=== PATIENT | female | born 1980 | race Caucasian/White ===

== ENCOUNTER 2016-02-22 08:43 | Emergency (ER) | payer OTHER ==
--- NOTE | 2016-02-22 11:32 | ED NURSING NOTES ---
Clinical Report - Nurses [facility] [address] [place] [address] 02/22/2016 8:44 Patient: DALILA HINDS TRIAGE Triage time 09:02. Acuity: LEVEL 3. Chief Complaint: RIGHT-SIDED FLANK PAIN. 09:09 02/22/16. Alert. No acute distress. SEPSIS SCREEN: Sepsis Screen. Infection suspected/documented. Heart rate not greater than 90. Respiratory rate not greater than 20. --09:10 Iam Mckoy R.N. 09:05 02/22/16. BP: 143/92. HR: 77. RR: 19. O2 saturation: 98% on room air. Temp: 98 F (oral). Pain level now 9/10. --09:10 Iam Mckoy R.N. Weight: 93.8 kg stated. Height/Length: 71 inches Per Patient. BMI: 28.9. --09:06 Iam Mckoy R.N. Medications Tecfidera Oral. --09:08 aIm Mckoy R.N. Vitamin D Oral. --09:08 Iam Mckoy R.N. Vitamin B12 Oral. --09:08 Iam Mckoy R.N. Allergies No Known Drug Allergy. --09:08 Iam Mckoy R.N. History Primary physician (asim). ( right side and right flank pain since last night. States pain is still present this morning. Describes pain as constant. States she also has some abdominal discomfort from tensing up from pain, pain is in upper abdomen only. Describes pain as similar to kidney infection a year ago.). This started last night. 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 PAST MEDICAL HX: Last normal menstrual period was 1 week ago. Denies current . SOCIAL HX: Heavy tobacco smoker (cigarette)- less than 1 pack per day. Occasional alcohol use. No drug use. FALL RISK ASSESSMENT: Fall risk assessment completed. No fall risk identified. NUTRITIONAL RISK ASSESSMENT: The nutritional risk assessment revealed no deficiencies. FUNCTIONAL ASSESSMENT: Functional assessment: no impairments noted. LEARNING NEEDS ASSESSMENT: The learning needs assessment revealed no barriers. SKIN INTEGRITY ASSESSMENT: Skin integrity risk assessment completed. No skin integrity risk identified. --09:10 Iam Mckoy R.N. PROBLEMS: Contact Dermatitis. Sprain. Pelvic Pain. Neurological Disease. Vaginitis. UTI - Urinary Tract Infection. Multiple Sclerosis. Eye Pain. --09:08 Iam Mckoy R.N. ADDITIONAL SURGERIES: no known surgeries. Interventions ID band on patient. To treatment room. --09:10 Iam Mckoy R.N. PHYSICAL ASSESSMENT 09:10 02/22/16. Ambulatory to room. GENERAL / NEURO / PSYCH: Alert. Oriented X 4. Appears in no acute distress. HEENT: Mucous membranes are pink. RESPIRATORY: Respirations not labored. CVS: Capillary refill less than 2 seconds. GI / : Abdomen soft. CVA tenderness. SKIN: Skin is warm and dry. --09:10 Iam Mckoy R.N. NURSING PROGRESS NOTES 09:10 02/22/16. The plan of care for this patient has been created. Patient gowned. Head of bed elevated. Call light placed in reach. Bed placed in lowest position. Brakes of bed on. Patient ready for evaluation- chart flagged. --09:10 Iam Mckoy R.N. 09:24 02/22/2016 Site #1 started via IV in the right forearm with an 20g angiocath, with aseptic technique and good blood return; two attempts. Saline lock flushed with 10 mL saline (purple top only). --09:29 Iam Mckoy R.N. 09:46 02/22/2016 Started bag #1 1000 mL IV Fluids IV NS (Saline); at 999 mL/hr over 1 hour(s) via site #1. Allergies verified and confirmed 5 rights. IV patency established. IV site checked: no pain, redness, or swelling. IV flushed thoroughly pre- and post-medication administration. Completed per protocol. --09:56 Iam Mckoy R.N. 09:52 02/22/2016 Zofran (Ondansetron HCl) IVP 4 mg given over 1 minute(s) via site #1. Allergies verified and confirmed 5 rights. IV patency established. IV site checked: no pain, redness, or swelling. IV flushed thoroughly pre- and post-medication administration. IVP given by RN. --09:57 Iam Mckoy R.N. 09:56 02/22/2016 Dilaudid (HYDROmorphone HCl PF) IVP 1 mg given over 2 minute(s) via site #1. Allergies verified, confirmed 5 rights and sedative warning given to the patient and patient's manager background. IV patency established. IV site checked: no pain, redness, or swelling. IV flushed thoroughly pre- and post-medication administration. IVP given by RN. --09:58 Iam Mckoy R.N. 10:50 02/22/2016 IV Fluids IV NS Discontinued: bag #1 infused. Total amount infused: 1000 mL. IV patency established. IV site checked: no pain, redness, or swelling. IV flushed thoroughly. --11:50 Iam Mckoy R.N. 11:04 02/22/2016 Keflex (Cephalexin) PO Capsules 500 mg given. Allergies verified and confirmed 5 rights. --11:14 Iam Mckoy R.N. 09:30 02/22/16. BP: 130/95. HR: 80. RR: 17. O2 saturation: 100%. Pain level now 8. --11:54 Iam Mckoy R.N. DISPOSITION / DISCHARGE 11:44 02/22/2016 Site #1 removed upon discharge. Catheter intact. Bandage applied. --11:49 Iam Mckoy R.N. 11:48 02/22/16. Departure time: 1149. Condition at departure: improved and stable. No learning barriers present. Discharge instructions provided and reviewed with the patient. Reviewed medication(s) side effects, precautions, dosing and course information. Prescription(s) given to the patient. Patient verbalized understanding. Written instructions provided in Korean. The patient was discharged by the physician. She was discharged home and accompanied by manager background. She left the Emergency Department ambulatory and via private vehicle. Electric Meter Repairer Helper driving. --11:49 Iam Mckoy R.N. 11:46 02/22/16. BP: 132/85. HR: 72. RR: 16. O2 saturation: 100% on room air. Temp: 98.2 F (oral). Pain level now 02/14. --11:49 Iam Mckoy R.N. Locked/Released at 02/25/2016 15:07 by Lady Matias R.N.
--- NOTE | 2016-02-22 11:32 | ED ORDER SUMMARY ---
..... Patient: DALILA HINDS OrderSheet [facility] VisitID: [id number] [address] [place] [address] 35y, F Registration Date/Time: 02/22/2016 ORDER SHEET Weight: 93.8 kg (stated) Allergies: No Known Drug Allergy GENERAL ORDERS: CBC w Diff Urgent (:02/22/2016 Scott Gonsalves) (9:55 KWilliams R.N.) (Ack 9:55 LNations ER Tech1) CMP Urgent (:02/22/2016 Scott Gonsalves) (9:55 KWilliams R.N.) (Ack 9:55 LNations ER Tech1) UA-Culture if indicated Urgent (02/22/2016 Scott Gonsalves) (9:55 KWilliams R.N.) (Ack 9:55 LNations ER Tech1) Lipase Urgent (:02/22/2016 Scott Gonsalves) (9:55 KWilliams R.N.) (Ack 9:55 LNations ER Tech1) Pulse oximeter (:02/22/2016 Scott Gonsalves) (9:45 KWilliams R.N.) Urine Urgent (:02/24/2016 Scott Gonsalves) (Cancelled: unable to do test anymore7:52 Scott Gonsalves) MEDICATION ORDERS: Keflex PO 500 mg (NOW) (10:42 02/22/2016 Scott Gonsalves) (11:14 KWilliams R.N.) IV FLUIDS: IV NS : initial bolus 1000 mL (1000 mL/hr), then none - for X1 (NOW) (:02/22/2016 Scott Gonsalves) (9:56 KWilliams R.N.) Zofran IV 4 mg (NOW) (02/22/2016 Scott Gonsalves) (9:57 KWilliams R.N.) Dilaudid IV 1 mg (HIGH ALERT MEDICATION, NOW) (02/22/2016 Scott Gonsalves) (9:58 KWilliams R.N.) ORDER SHEET NOTES: [Electronically signed by Odin Vaughn Dr. (08:02/24/2016)] [Electronically signed by Lady Matias R.N. (15:02/25/2016)] [Electronically locked/signed by Lady Matias R.N. (15:02/25/2016)]
--- NOTE | 2016-02-22 11:32 | ED CLINICAL REPORT ---
Clinical Report - Physicians/Mid Levels [facility] [address] [place] [address] 02/22/2016 8:44 Patient: DALILA HINDS Arrived- By private vehicle. Historian- patient. HISTORY OF PRESENT ILLNESS Chief Complaint: FLANK PAIN. At its maximum, severity described as moderate. When seen in the E.D., severity described as moderate. Is still present and worsening. It was gradual in onset and has been constant but is not gone now. No radiation. It is described as located in the right flank. No loss of appetite, vomiting or diarrhea. No additional abdominal pain. No recent travel. Similar symptoms previously: None. Recent medical care: Not recently seen/assessed. REVIEW OF SYSTEMS No constipation, black stools, hematemesis, bloody stools or fever. No chest pain or skin rash. All systems otherwise negative, except as recorded above. PAST HISTORY See nurses notes. Additional Surgeries: no known surgeries. Medications: Vitamin B12 Oral. Vitamin D Oral. Tecfidera Oral. Allergies: No Known Drug Allergy. SOCIAL HISTORY Smoker- current status unknown. Occasional alcohol use. No drug use. ADDITIONAL NOTES The nursing notes have been reviewed. PHYSICAL EXAM Vital Signs: 02/22/2016 09:05 BP: 143/92. HR: 77. RR: 19. O2 saturation: 98%. Temp: 98 F. Blood pressure normal. Oxygen saturation normal. Appearance: Alert. Oriented X3. No acute distress. CVS: Normal heart rate and rhythm. Heart sounds normal. Pulses normal. Respiratory: No respiratory distress. Breath sounds normal. Chest nontender. Abdomen: Soft and nontender. Bowel sounds normal. No mass. Back: Mild CVA tenderness on the right. Skin: Skin warm and dry. Normal skin color. No rash. Normal skin turgor. LABS, X-RAYS, AND EKG Laboratory Tests: UA-Culture if indicated: (UTE: 02/22/2016 09:50) ( MsgRcvd 02/22/2016 10:34) Final results Test Result Flag Units (Reference) URINE COLOR YELLOW URINE APPEARANCE CLEAR URINE GLUCOSE NEGATIVE (NEGATIVE) URINE BILIRUBIN NEGATIVE (NEGATIVE) URINE KETONE NEGATIVE (NEGATIVE) URINE SPECIFIC GRAVITY 1.010 (1.010-1.030) URINE PH 7.0 (5.0-8.0) URINE PROTEIN TRACE (NEGATIVE) URINE UROBILINOGEN 0.2 EU/dL (0.2-1.0) URINE NITRITE NEGATIVE (NEGATIVE) URINE BLOOD NEGATIVE (NEGATIVE) URINE LEUK ESTERASE POSITIVE (NEGATIVE) URINE RBC 0-1 rbc/hpf (0-1) URINE WBC 3-5 wbc/hpf (0-1) URINE EPITHELIAL CELLS 3-5 EPI/hpf (0-5) URINE BACTERIA FEW (1+) (NONE SEEN) URINE COMMENT CULTURE INDICATED URINE CULTURES ARE SET-UP BASED ON THE FOLLOWING CRITERIA:POSITIVE NITRITEPOSITIVE LEUKOCYTE ESTERASEGREATER THAN 10 WHITE BLOOD CELLSMODERATE (2+) OR GREATER BACTERIA CBC w Diff: (UTE: 02/22/2016 09:50) ( [facility] 02/22/2016 11:56) Final results Test Result Flag Units (Reference) WHITE BLOOD COUNT 4.9 K/uL (4.5-11.5) RED BLOOD COUNT 4.71 M/uL (4.00-5.20) HEMOGLOBIN 14.6 gm/dL (12.0-16.0) HEMATOCRIT 45.5 % (36.0-46.0) MEAN CELL VOLUME 97 fL (80-100) MEAN CORPUSCULAR HGB 31 pg (26-34) MEAN CORPUSCULAR HGB CONC 32 g/dL (31-37) RED CELL DISTRIBUTION WIDTH 13.1 % (11.6-14.8) PLATELET COUNT 203 K/uL (150-400) POLY % 73 % (50-75) BAND % 1 % (0-8) LYMPH 17 L % (25-40) MONO 8 % (3-14) EOSINOPHIL % 1 % (0-4) BASOPHIL % 0 % (0-2) METAMYELOCYTE % 0 % (0-1) MYELOCYTE 0 % (0-1) OTHER CELL TYPE 0 RBC MORPHOLOGY NORMAL CMP: (UTE: 02/22/2016 09:50) ( [facility] [place] 02/22/2016 10:20) Final results Test Result Flag Units (Reference) GLUCOSE 94 mg/dL (70-110) BUN 15 mg/dL (7-18) CREATININE 0.8 mg/dL (0.6-1.3) Estimated GFR >60 mL/min Estimated GFR- >60 mL/min Note: Persistent reduction over 3 months in eGFR<60 mL/min/1.73 m2 defines CKD. Patients with eGFR values>=60 mL/min/1.73 m2 may also have CKD if evidence ofpersistent proteinuria. Additional information may be foundat www.kidney.org. SODIUM 142 mmol/L (136-145) POTASSIUM 3.8 mmol/L (3.5-5.1) CHLORIDE 106 mmol/L (98-107) CARBON DIOXIDE 26 mmol/L (21-32) CALCIUM 9.1 mg/dL (8.5-10.1) TOTAL PROTEIN 7.2 g/dL (6.4-8.2) ALBUMIN 4.0 g/dL (3.3-5.0) BILIRUBIN, TOTAL 0.5 mg/dL (0.0-1.0) ALKALINE PHOSPHATASE 70 U/L (46-116) AST (SGOT) 16 U/L (15-37) ALT (SGPT) 28 U/L (12-78) LIPASE 117 U/L (73-393) Culture, Urine: (UTE: 02/22/2016 09:50) ( MsgRcvd 02/23/2016 10:05) IP Test Result Flag Units (Reference) CULTURE, URINE DATE: 02/23/16 PRELIM REPORT: PRELIMINARY REPORT #1 VERY EARLY GROWTH: VERY EARLY GROWTH: CULTURE TOO YOUNG FOR WORKUP-REINCUBATED . PROGRESS AND PROCEDURES Course of Care: the patient is a 35-year-old female comfortable past medical history of present for evaluation of right-sided flank pain. At this time differential diagnosis includes urinary tract infection versus appendicitis versus hepatitis. Laboratory studies as well as urinalysis have been ordered. Patient states that she is not . Had discussion patient in regards to test. Patient reports that she had taken one recently and was negative. Do not feel this needs to be repeated at this time. Patient is also adamant that she is . if there are any continued inconsistencies with the patient's workup in the emergency department, we'll revisit this later. Workup shows patient to have urinary tract infection. This is consistent with the patient's examination and history. Patient reports improved symptoms here in the emergency department. I discussed with patient in regards to her workup, diagnosis, home care, follow-up, and return precautions. All questions answered. The patient expressed understanding of these instructions and was agreeable to them. Particularly, acute appendicitis precautions provided. Discharged being completed after the patient has been dispositioned from the emergency department. the patient was contacted on [phone] at approximately 8 AM in the morning. Patient reports improved symptoms of her pain. Patient reports being on antibiotic for 48 hours. The patient states that she will return for any worsening or other concerns. Disposition: Discharged. Condition: good. CLINICAL IMPRESSION 02/22/2016 09:05 BP: 143/92. HR: 77. RR: 19. O2 saturation: 98%. Temp: 98 F. Blood pressure normal. Oxygen saturation normal. Acute pyelonephritis (right). Essential hypertension. INSTRUCTIONS Warnings: GENERAL WARNINGS: Return or contact your physician immediately if your condition worsens or changes unexpectedly, if not improving as expected, or if other problems arise. SPECIFICALLY, return if you develop pain, fever, vomiting, the inability to keep fluids down, blood in vomitus, blood in diarrhea, fainting or lightheadedness. Your Current Medications: CONTINUE TAKING THE FOLLOWING MEDICATIONS: Tecfidera Oral. Vitamin B12 Oral. Vitamin D Oral. Prescription Medications: Keflex 500 mg: take 1 capsule orally every 8 hours for 10 days. No refill. Substitution is permissible. (disp 30 caps) Motrin 600 mg tablets: take 1 tablet orally every 6 hours as needed for pain. Dispense thirty (30). No refill. Substitution is permissible. Hydrocodone/APAP 5mg / 325mg: take 1 orally every 6 hours as needed for pain. Dispense ten (10). No refill. Follow-up: Return to the emergency department as needed. Follow up with your doctor in three days. Reason for referral: recheck today's concerns. Summary of care provided to patient via paper. Screening today revealed the patient's blood pressure to be in the normal range. The patient should follow up with a primary care provider for blood pressure management. (Electronically signed by Odin Vaughn Dr. 02/24/2016 8:01)
--- NOTE | 2016-02-22 11:32 | ED ORDER SUMMARY ---
..... Patient: DALILA HINDS OrderSheet [facility] VisitID: [id number] [address] [place] [address] 35y, F Registration Date/Time: 02/22/2016 ORDER SHEET Weight: 93.8 kg (stated) Allergies: No Known Drug Allergy GENERAL ORDERS: CBC w Diff Urgent (:02/22/2016 Scott Gonsalves) (9:55 KWilliams R.N.) (Ack 9:55 LNations ER Tech1) CMP Urgent (:02/22/2016 Scott Gonsalves) (9:55 KWilliams R.N.) (Ack 9:55 LNations ER Tech1) UA-Culture if indicated Urgent (02/22/2016 Scott Gonsalves) (9:55 KWilliams R.N.) (Ack 9:55 LNations ER Tech1) Lipase Urgent (:02/22/2016 Scott Gonsalves) (9:55 KWilliams R.N.) (Ack 9:55 LNations ER Tech1) Pulse oximeter (:02/22/2016 Scott Gonsalves) (9:45 KWilliams R.N.) Urine Urgent (:02/24/2016 Scott Gonsalves) (Cancelled: unable to do test anymore7:52 Scott Gonsalves) MEDICATION ORDERS: Keflex PO 500 mg (NOW) (10:42 02/22/2016 Scott Gonsalves) (11:14 KWilliams R.N.) IV FLUIDS: IV NS : initial bolus 1000 mL (1000 mL/hr), then none - for X1 (NOW) (:02/22/2016 Scott Gonsalves) (9:56 KWilliams R.N.) Zofran IV 4 mg (NOW) (02/22/2016 Scott Gonsalves) (9:57 KWilliams R.N.) Dilaudid IV 1 mg (HIGH ALERT MEDICATION, NOW) (02/22/2016 Scott Gonsalves) (9:58 KWilliams R.N.) ORDER SHEET NOTES: [Electronically signed by Odin Vaughn Dr. (08:02/24/2016)] [Electronically signed by Lady Matias R.N. (15:02/25/2016)] [Electronically locked/signed by Lady Matias R.N. (15:02/25/2016)]
--- NOTE | 2016-02-22 11:32 | ED NURSING NOTES ---
Clinical Report - Nurses [facility] [address] [place] [address] 02/22/2016 8:44 Patient: DALILA HINDS TRIAGE Triage time 09:02. Acuity: LEVEL 3. Chief Complaint: RIGHT-SIDED FLANK PAIN. 09:09 02/22/16. Alert. No acute distress. SEPSIS SCREEN: Sepsis Screen. Infection suspected/documented. Heart rate not greater than 90. Respiratory rate not greater than 20. --09:10 Iam Mckoy R.N. 09:05 02/22/16. BP: 143/92. HR: 77. RR: 19. O2 saturation: 98% on room air. Temp: 98 F (oral). Pain level now 9/10. --09:10 Iam Mckoy R.N. Weight: 93.8 kg stated. Height/Length: 71 inches Per Patient. BMI: 28.9. --09:06 Iam Mckoy R.N. Medications Tecfidera Oral. --09:08 Iam Mckoy R.N. Vitamin D Oral. --09:08 Iam Mckoy R.N. Vitamin B12 Oral. --09:08 Iam Mckoy R.N. Allergies No Known Drug Allergy. --09:08 Iam Mckoy R.N. History Primary physician (asim). ( right side and right flank pain since last night. States pain is still present this morning. Describes pain as constant. States she also has some abdominal discomfort from tensing up from pain, pain is in upper abdomen only. Describes pain as similar to kidney infection a year ago.). This started last night. 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 PAST MEDICAL HX: Last normal menstrual period was 1 week ago. Denies current . SOCIAL HX: Heavy tobacco smoker (cigarette)- less than 1 pack per day. Occasional alcohol use. No drug use. FALL RISK ASSESSMENT: Fall risk assessment completed. No fall risk identified. NUTRITIONAL RISK ASSESSMENT: The nutritional risk assessment revealed no deficiencies. FUNCTIONAL ASSESSMENT: Functional assessment: no impairments noted. LEARNING NEEDS ASSESSMENT: The learning needs assessment revealed no barriers. SKIN INTEGRITY ASSESSMENT: Skin integrity risk assessment completed. No skin integrity risk identified. --09:10 Iam Mckoy R.N. PROBLEMS: Contact Dermatitis. Sprain. Pelvic Pain. Neurological Disease. Vaginitis. UTI - Urinary Tract Infection. Multiple Sclerosis. Eye Pain. --09:08 Iam Mckoy R.N. ADDITIONAL SURGERIES: no known surgeries. Interventions ID band on patient. To treatment room. --09:10 Iam Mckoy R.N. PHYSICAL ASSESSMENT 09:10 02/22/16. Ambulatory to room. GENERAL / NEURO / PSYCH: Alert. Oriented X 4. Appears in no acute distress. HEENT: Mucous membranes are pink. RESPIRATORY: Respirations not labored. CVS: Capillary refill less than 2 seconds. GI / : Abdomen soft. CVA tenderness. SKIN: Skin is warm and dry. --09:10 Iam Mckoy R.N. NURSING PROGRESS NOTES 09:10 02/22/16. The plan of care for this patient has been created. Patient gowned. Head of bed elevated. Call light placed in reach. Bed placed in lowest position. Brakes of bed on. Patient ready for evaluation- chart flagged. --09:10 Iam Mckoy R.N. 09:24 02/22/2016 Site #1 started via IV in the right forearm with an 20g angiocath, with aseptic technique and good blood return; two attempts. Saline lock flushed with 10 mL saline (purple top only). --09:29 Iam Mckoy R.N. 09:46 02/22/2016 Started bag #1 1000 mL IV Fluids IV NS (Saline); at 999 mL/hr over 1 hour(s) via site #1. Allergies verified and confirmed 5 rights. IV patency established. IV site checked: no pain, redness, or swelling. IV flushed thoroughly pre- and post-medication administration. Completed per protocol. --09:56 Iam Mckoy R.N. 09:52 02/22/2016 Zofran (Ondansetron HCl) IVP 4 mg given over 1 minute(s) via site #1. Allergies verified and confirmed 5 rights. IV patency established. IV site checked: no pain, redness, or swelling. IV flushed thoroughly pre- and post-medication administration. IVP given by RN. --09:57 Iam Mckoy R.N. 09:56 02/22/2016 Dilaudid (HYDROmorphone HCl PF) IVP 1 mg given over 2 minute(s) via site #1. Allergies verified, confirmed 5 rights and sedative warning given to the patient and patient's stitch wheeler. IV patency established. IV site checked: no pain, redness, or swelling. IV flushed thoroughly pre- and post-medication administration. IVP given by RN. --09:58 Iam Mckoy R.N. 10:50 02/22/2016 IV Fluids IV NS Discontinued: bag #1 infused. Total amount infused: 1000 mL. IV patency established. IV site checked: no pain, redness, or swelling. IV flushed thoroughly. --11:50 Iam Mckoy R.N. 11:04 02/22/2016 Keflex (Cephalexin) PO Capsules 500 mg given. Allergies verified and confirmed 5 rights. --11:14 Iam Mckoy R.N. 09:30 02/22/16. BP: 130/95. HR: 80. RR: 17. O2 saturation: 100%. Pain level now 8. --11:54 Iam Mckoy R.N. DISPOSITION / DISCHARGE 11:44 02/22/2016 Site #1 removed upon discharge. Catheter intact. Bandage applied. --11:49 Iam Mckoy R.N. 11:48 02/22/16. Departure time: 1149. Condition at departure: improved and stable. No learning barriers present. Discharge instructions provided and reviewed with the patient. Reviewed medication(s) side effects, precautions, dosing and course information. Prescription(s) given to the patient. Patient verbalized understanding. Written instructions provided in Czech. The patient was discharged by the physician. She was discharged home and accompanied by stitch wheeler. She left the Emergency Department ambulatory and via private vehicle. Color Adviser driving. --11:49 Iam Mckoy R.N. 11:46 02/22/16. BP: 132/85. HR: 72. RR: 16. O2 saturation: 100% on room air. Temp: 98.2 F (oral). Pain level now 02/14. --11:49 Iam Mckoy R.N. Locked/Released at 02/25/2016 15:07 by Lady Matias R.N.
--- NOTE | 2016-02-25 15:08 | ED MED RECONCILIATION SUMMARY ---
Patient: DALILA HINDS Medication Reconciliation Report [facility] VisitID: [id number] [address] [place] [address] 35y, F Registration Date/Time: 02/22/2016 Weight: 93.8 kg Height/Length: 71 in. BMI: 28.9 ALLERGIES: No Known Drug Allergy The patient's Home Medications are listed below: CONTINUE TAKING THE FOLLOWING MEDICATIONS: Tecfidera Oral Vitamin B12 Oral Vitamin D Oral The source(s) of the original Home Medication information: Not obtained. The following Medications were given to the patient in the Emergency Department: IV NS IV Fluids bolus 0, then 999 mL/hr, administered: 02/22/2016 9:46:00 AM Zofran [IVP] IVP 4 mg, administered: 02/22/2016 9:52:00 AM Dilaudid [IVP] IVP 1 mg, administered: 02/22/2016 9:56:00 AM Keflex [PO] PO 500 mg, administered: 02/22/2016 11:04:00 AM The following Medications were prescribed to the patient: Keflex 500 mg: take 1 capsule orally every 8 hours for 10 days. No refill. Substitution is permissible.(disp 30 caps) -- Odin Vaughn Dr. Motrin 600 mg tablets: take 1 tablet orally every 6 hours as needed for pain. Dispense thirty (30). No refill. Substitution is permissible. -- Odin Vaughn Dr. Hydrocodone/APAP 5mg / 325mg: take 1 orally every 6 hours as needed for pain. Dispense ten (10). No refill. -- Odin Vaughn Dr.
--- NOTE | 2016-02-25 15:08 | ED MED RECONCILIATION SUMMARY ---
Patient: DALILA HINDS Medication Reconciliation Report [facility] VisitID: [id number] [address] [place] [address] 35y, F Registration Date/Time: 02/22/2016 Weight: 93.8 kg Height/Length: 71 in. BMI: 28.9 ALLERGIES: No Known Drug Allergy The patient's Home Medications are listed below: CONTINUE TAKING THE FOLLOWING MEDICATIONS: Tecfidera Oral Vitamin B12 Oral Vitamin D Oral The source(s) of the original Home Medication information: Not obtained. The following Medications were given to the patient in the Emergency Department: IV NS IV Fluids bolus 0, then 999 mL/hr, administered: 02/22/2016 9:46:00 AM Zofran [IVP] IVP 4 mg, administered: 02/22/2016 9:52:00 AM Dilaudid [IVP] IVP 1 mg, administered: 02/22/2016 9:56:00 AM Keflex [PO] PO 500 mg, administered: 02/22/2016 11:04:00 AM The following Medications were prescribed to the patient: Keflex 500 mg: take 1 capsule orally every 8 hours for 10 days. No refill. Substitution is permissible.(disp 30 caps) -- Odin Vaughn Dr. Motrin 600 mg tablets: take 1 tablet orally every 6 hours as needed for pain. Dispense thirty (30). No refill. Substitution is permissible. -- Odin Vaughn Dr. Hydrocodone/APAP 5mg / 325mg: take 1 orally every 6 hours as needed for pain. Dispense ten (10). No refill. -- Odin Vaughn Dr.
--- NOTE | 2016-02-25 15:08 | ED MAR SUMMARY ---
..... Medication Administration Record [facility] [address] [place] [address] Patient: DALILA HINDS Visit ID: [id number] 35y, F Weight: 93.8 kg Height/Length: 71 in BMI: 28.9 ALLERGIES: No Known Drug Allergy Start 09:46 02/22/2016 Iam Mckoy R.N., Stop 10:50 02/22/2016 Iam Mckoy R.N. Medication Administered: IV NS (SALINE), Dose: IV Fluids over 1 hour(s), Rate: 999 mL/hr, Dispensed: 1000 mL bag, Site: #1 right forearm. Medication Ordered: IV NS : initial bolus 1000 mL (1000 mL/hr), then none - for X1 (NOW). Given 09:52 02/22/2016 Iam Mckoy R.N. Medication Administered: ZOFRAN [IVP] (ONDANSETRON HCL), Dose: 4 mg IVP over 1 minute(s), Site: #1 right forearm. Medication Ordered: Zofran IV 4 mg (NOW). Given 09:56 02/22/2016 Iam Mckoy R.N. Medication Administered: DILAUDID [IVP] (HYDROMORPHONE HCL PF), Dose: 1 mg IVP over 2 minute(s), Site: #1 right forearm. Medication Ordered: Dilaudid IV 1 mg (HIGH ALERT MEDICATION, NOW). Given 11:04 02/22/2016 Iam Mckoy R.N. Medication Administered: KEFLEX [PO] (CEPHALEXIN), Dose: 500 mg Capsules PO. Medication Ordered: Keflex PO 500 mg (NOW).
--- NOTE | 2016-02-25 15:08 | ED MAR SUMMARY ---
..... Medication Administration Record [facility] [address] [place] [address] Patient: DALILA HINDS Visit ID: [id number] 35y, F Weight: 93.8 kg Height/Length: 71 in BMI: 28.9 ALLERGIES: No Known Drug Allergy Start 09:46 02/22/2016 Iam Mckoy R.N., Stop 10:50 02/22/2016 Iam Mckoy R.N. Medication Administered: IV NS (SALINE), Dose: IV Fluids over 1 hour(s), Rate: 999 mL/hr, Dispensed: 1000 mL bag, Site: #1 right forearm. Medication Ordered: IV NS : initial bolus 1000 mL (1000 mL/hr), then none - for X1 (NOW). Given 09:52 02/22/2016 Iam Mckoy R.N. Medication Administered: ZOFRAN [IVP] (ONDANSETRON HCL), Dose: 4 mg IVP over 1 minute(s), Site: #1 right forearm. Medication Ordered: Zofran IV 4 mg (NOW). Given 09:56 02/22/2016 Iam Mckoy R.N. Medication Administered: DILAUDID [IVP] (HYDROMORPHONE HCL PF), Dose: 1 mg IVP over 2 minute(s), Site: #1 right forearm. Medication Ordered: Dilaudid IV 1 mg (HIGH ALERT MEDICATION, NOW). Given 11:04 02/22/2016 Iam Mckoy R.N. Medication Administered: KEFLEX [PO] (CEPHALEXIN), Dose: 500 mg Capsules PO. Medication Ordered: Keflex PO 500 mg (NOW).
--- NOTE | 2016-02-25 15:08 | ED DISCHARGE INSTRUCTIONS ---
Patient: DALILA HINDS General Instructions [facility] VisitID: [id number] [address] [place] [address] 35y, F Registration Date/Time: 02/22/2016 02/22/2016 09:05 BP: 143/92. HR: 77. RR: 19. O2 saturation: 98%. Temp: 98 F. Blood pressure normal. Oxygen saturation normal. Acute pyelonephritis (right). Essential hypertension. INSTRUCTIONS Warnings: GENERAL WARNINGS: Return or contact your physician immediately if your condition worsens or changes unexpectedly, if not improving as expected, or if other problems arise. SPECIFICALLY, return if you develop pain, fever, vomiting, the inability to keep fluids down, blood in vomitus, blood in diarrhea, fainting or lightheadedness. Your Current Medications: CONTINUE TAKING THE FOLLOWING MEDICATIONS: Tecfidera Oral. Vitamin B12 Oral. Vitamin D Oral. Prescription Medications: Keflex 500 mg: take 1 capsule orally every 8 hours for 10 days. No refill. Substitution is permissible. (disp 30 caps) Motrin 600 mg tablets: take 1 tablet orally every 6 hours as needed for pain. Dispense thirty (30). No refill. Substitution is permissible. Hydrocodone/APAP 5mg / 325mg: take 1 orally every 6 hours as needed for pain. Dispense ten (10). No refill. Follow-up: Return to the emergency department as needed. Follow up with your doctor in three days. Reason for referral: recheck today's concerns. Summary of care provided to patient via paper. Screening today revealed the patient's blood pressure to be in the normal range. The patient should follow up with a primary care provider for blood pressure management. ADDITIONAL INFORMATION Kidney Infection [Adult, Female] An infection of the kidney is also called "pyelonephritis". It usually starts as a bladder infection ("cystitis") which spreads to the kidneys. Pyelonephritis is more serious than a bladder infection. It can cause severe illness if not treated properly. The usual symptoms include an aching pain in the back, side or lower abdomen. Other symptoms may include fever, chills, nausea, vomiting, an urge to urinate and a burning sensation when passing urine. Home Care: Stay home from work or school. Rest in bed until your fever breaks and you are feeling better. Drink lots of fluid (at least 6-8 glasses a day, unless you must restrict fluids for other medical reasons). This will force the medicine into your urinary system and flush the bacteria out of your body. Avoid sexual intercourse until you have finished all of your medicine and your symptoms have gone away. Avoid caffeine, alcohol and spicy foods which may irritate the kidney and bladder. You may use acetaminophen (Tylenol) or ibuprofen (Motrin, Advil) to control pain, unless another pain medicine was prescribed. [NOTE: If you have chronic liver or kidney disease or ever had a stomach ulcer or GI bleeding, talk with your doctor before using these medicines.] Follow Up with your doctor or as advised by our staff for a repeat urine test in 10 days. This will ensure that your infection is fully cleared. [NOTE: If you had an X-ray or CT scan, it will be reviewed by a specialist. You will be notified of any new findings that may affect your care.] Get Prompt Medical Attention if any of the following occur: Fever over 100.4F (38.0C) after 48 hours of treatment No improvement by the third day of treatment Increasing back or abdominal pain Repeated vomiting or inability to take oral medicine Weakness, dizziness or fainting High Blood Pressure -- To Be Confirmed [No Tx] Your blood pressure was higher today than normal. Sometimes anxiety or pain can cause a temporary rise in blood pressure that later returns to normal. If your blood pressure is high on one measurement, this does not mean that you have hypertension (a chronic illness). However, you must have your blood pressure measured again within the next few days to find out if its still high. A normal blood pressure is 120/80 or less. The first (top) number is the "systolic" pressure. The second (bottom) number is the "diastolic" pressure. Hypertension exists when either the top number is 140 or higher, OR the bottom number is 90 or higher on repeated measurements. Blood pressure in the range of 120-140 (systolic) or 80-89 (diastolic) is considered "pre-hypertension". This means your are at risk for getting hypertension. You should have regular blood pressure checks to be sure your blood pressure is not rising. Home Care: Measure your blood pressure on 3 different days and write down the results. This can be done at your doctor's office or this facility. Some pharmacies and grocery stores offer automated blood pressure machines for your use. Follow Up: If your blood pressure is "high" (over 120/80) on 2 out of 3 days, you will need to follow up with your doctor for further evaluation and treatment. DO NOT PUT THIS OFF! Untreated high blood pressure increases the risk for heart attack, also known as acute myocardial infarction, or AMI, and stroke. It is a treatable condition. Get Prompt Medical Attention if any of the following occur: Chest pain or shortness of breath Severe headache Throbbing or rushing sound in the ears Nosebleed Sudden severe abdominal pain Extreme drowsiness, confusion or fainting Dizziness or vertigo (dizziness with spinning sensation) Weakness of an arm or leg or one side of the face Difficulty with speech or vision Cephalexin Monohydrate Oral tablet What is this medicine? CEPHALEXIN (sef a MATT in) is a cephalosporin antibiotic. It is used to treat certain kinds of bacterial infections It will not work for colds, flu, or other viral infections. How should I use this medicine? Take this medicine by mouth with a full glass of water. Follow the directions on the prescription label. This medicine can be taken with or without food. Take your medicine at regular intervals. Do not take your medicine more often than directed. Take all of your medicine as directed even if you think you are better. Do not skip doses or stop your medicine early. Talk to your composition floor layer regarding the use of this medicine in children. While this drug may be prescribed for selected conditions, precautions do apply. What side effects may I notice from receiving this medicine? Side effects that you should report to your doctor or health transitional care nurse as soon as possible: allergic reactions like skin rash, itching or hives, swelling of the face, lips, or tongue breathing problems pain or trouble passing urine redness, blistering, peeling or loosening of the skin, including inside the mouth severe or watery diarrhea unusually weak or tired yellowing of the eyes, skin Side effects that usually do not require medical attention (report to your doctor or health transitional care nurse if they continue or are bothersome): gas or heartburn genital or anal irritation headache joint or muscle pain nausea, vomiting What may interact with this medicine? probenecid some other antibiotics What if I miss a dose? If you miss a dose, take it as soon as you can. If it is almost time for your next dose, take only that dose. Do not take double or extra doses. There should be at least 4 to 6 hours between doses. Where should I keep my medicine? Keep out of the reach of children. Store at room temperature between 59 and 86 degrees F (15 and 30 degrees C). Throw away any unused medicine after the expiration date. What should I tell my health care provider before I take this medicine? They need to know if you have any of these conditions: kidney disease stomach or intestine problems, especially colitis an unusual or allergic reaction to cephalexin, other cephalosporins, penicillins, other antibiotics, medicines, foods, dyes or preservatives or trying to get breast-feeding What should I watch for while using this medicine? Tell your doctor or health transitional care nurse if your symptoms do not begin to improve in a few days. Do not treat diarrhea with over the counter products. Contact your doctor if you have diarrhea that lasts more than 2 days or if it is severe and watery. If you have diabetes, you may get a false-positive result for sugar in your urine. Check with your doctor or health transitional care nurse. Ibuprofen Oral tablet What is this medicine? IBUPROFEN (eye BYOO proe fen) is a non-steroidal anti-inflammatory drug (NSAID). It is used for dental pain, fever, headaches or migraines, osteoarthritis, rheumatoid arthritis, or painful monthly periods. It can also relieve minor aches and pains caused by a cold, flu, or sore throat. How should I use this medicine? Take this medicine by mouth with a glass of water. Follow the directions on the prescription label. Take this medicine with food if your stomach gets upset. Try to not lie down for at least 10 minutes after you take the medicine. Take your medicine at regular intervals. Do not take your medicine more often than directed. A special MedGuide will be given to you by the pharmacist with each prescription and refill. Be sure to read this information carefully each time. Talk to your composition floor layer regarding the use of this medicine in children. Special care may be needed. What side effects may I notice from receiving this medicine? Side effects that you should report to your doctor or health transitional care nurse as soon as possible: allergic reactions like skin rash, itching or hives, swelling of the face, lips, or tongue black or bloody stools, blood in the urine or in vomit breathing problems changes in vision chest pain general ill feeling or flu-like symptoms nausea or vomiting redness, blistering, peeling or loosening of the skin, including inside the mouth slurred speech or weakness on one side of the body stomach pain unexplained weight gain or swelling unusually weak or tired yellowing of eyes or skin Side effects that usually do not require medical attention (report to your doctor or health transitional care nurse if they continue or are bothersome): constipation or diarrhea dizziness gas or heartburn stomach upset What may interact with this medicine? Do not take this medicine with any of the following medications: cidofovir ketorolac methotrexate pemetrexed This medicine may also interact with the following medications: alcohol aspirin diuretics lithium other drugs for inflammation like prednisone warfarin What if I miss a dose? If you miss a dose, take it as soon as you can. If it is almost time for your next dose, take only that dose. Do not take double or extra doses. Where should I keep my medicine? Keep out of the reach of children. Store at room temperature between 15 and 30 degrees C (59 and 86 degrees F). Keep container tightly closed. Throw away any unused medicine after the expiration date. What should I tell my health care provider before I take this medicine? They need to know if you have any of these conditions: asthma cigarette smoker drink more than 3 alcohol containing drinks a day heart disease or circulation problems such as heart failure or leg edema (fluid retention) high blood pressure kidney disease liver disease stomach bleeding or ulcers an unusual or allergic reaction to ibuprofen, aspirin, other NSAIDS, other medicines, foods, dyes, or preservatives or trying to get breast-feeding What should I watch for while using this medicine? Tell your doctor or healthcare professional if your symptoms do not start to get better or if they get worse. This medicine does not prevent heart attack or stroke. In fact, this medicine may increase the chance of a heart attack or stroke. The chance may increase with longer use of this medicine and in people who have heart disease. If you take aspirin to prevent heart attack or stroke, talk with your doctor or health transitional care nurse. Do not take other medicines that contain aspirin, ibuprofen, or naproxen with this medicine. Side effects such as stomach upset, nausea, or ulcers may be more likely to occur. Many medicines available without a prescription should not be taken with this medicine. This medicine can cause ulcers and bleeding in the stomach and intestines at any time during treatment. Ulcers and bleeding can happen without warning symptoms and can cause . To reduce your risk, do not smoke cigarettes or drink alcohol while you are taking this medicine. You may get drowsy or dizzy. Do not drive, use machinery, or do anything that needs mental alertness until you know how this medicine affects you. Do not stand or sit up quickly, especially if you are an older patient. This reduces the risk of dizzy or fainting spells. This medicine can cause you to bleed more easily. Try to avoid damage to your teeth and gums when you brush or floss your teeth. Hydrocodone Bitartrate, Acetaminophen Oral tablet What is this medicine? ACETAMINOPHEN; HYDROCODONE (a set a DAVID stacey fen; aquiles droe KOE done) is a pain reliever. It is used to treat mild to moderate pain. How should I use this medicine? Take this medicine by mouth. Swallow it with a full glass of water. Follow the directions on the prescription label. If the medicine upsets your stomach, take the medicine with food or milk. Do not take more than you are told to take. Talk to your composition floor layer regarding the use of this medicine in children. This medicine is not approved for use in children. What side effects may I notice from receiving this medicine? Side effects that you should report to your doctor or health transitional care nurse as soon as possible: allergic reactions like skin rash, itching or hives, swelling of the face, lips, or tongue breathing problems confusion feeling faint or lightheaded, falls stomach pain yellowing of the eyes or skin Side effects that usually do not require medical attention (report to your doctor or health transitional care nurse if they continue or are bothersome): nausea, vomiting stomach upset What may interact with this medicine? alcohol antihistamines isoniazid medicines for depression, anxiety, or psychotic disturbances medicines for sleep muscle relaxants naltrexone narcotic medicines (opiates) for pain phenobarbital ritonavir tramadol What if I miss a dose? If you miss a dose, take it as soon as you can. If it is almost time for your next dose, take only that dose. Do not take double or extra doses. Where should I keep my medicine? Keep out of the reach of children. This medicine can be abused. Keep your medicine in a safe place to protect it from theft. Do not share this medicine with anyone. Selling or giving away this medicine is dangerous and against the law. Store at room temperature between 15 and 30 degrees C (59 and 86 degrees F). Protect from light. Keep container tightly closed. Throw away any unused medicine after the expiration date. Discard unused medicine and used packaging carefully. Pets and children can be harmed if they find used or lost packages. What should I tell my health care provider before I take this medicine? They need to know if you have any of these conditions: brain tumor Crohn's disease, inflammatory bowel disease, or ulcerative colitis drink more than 3 alcohol-containing drinks per day drug abuse or addiction head injury heart or circulation problems kidney disease or problems going to the bathroom liver disease lung disease, asthma, or breathing problems an unusual or allergic reaction to acetaminophen, hydrocodone, other opioid analgesics, other medicines, foods, dyes, or preservatives or trying to get breast-feeding What should I watch for while using this medicine? Tell your doctor or health transitional care nurse if your pain does not go away, if it gets worse, or if you have new or a different type of pain. You may develop tolerance to the medicine. Tolerance means that you will need a higher dose of the medicine for pain relief. Tolerance is normal and is expected if you take the medicine for a long time. Do not suddenly stop taking your medicine because you may develop a severe reaction. Your body becomes used to the medicine. This does NOT mean you are addicted. Addiction is a behavior related to getting and using a drug for a non-medical reason. If you have pain, you have a medical reason to take pain medicine. Your doctor will tell you how much medicine to take. If your doctor wants you to stop the medicine, the dose will be slowly lowered over time to avoid any side effects. You may get drowsy or dizzy when you first start taking the medicine or change doses. Do not drive, use machinery, or do anything that may be dangerous until you know how the medicine affects you. Stand or sit up slowly. There are different types of narcotic medicines (opiates) for pain. If you take more than one type at the same time, you may have more side effects. Give your health care provider a list of all medicines you use. Your doctor will tell you how much medicine to take. Do not take more medicine than directed. Call emergency for help if you have problems breathing. The medicine will cause constipation. Try to have a bowel movement at least every 2 to 3 days. If you do not have a bowel movement for 3 days, call your doctor or health transitional care nurse. Too much acetaminophen can be very dangerous. Do not take Tylenol (acetaminophen) or medicines that contain acetaminophen with this medicine. Many non-prescription medicines contain acetaminophen. Always read the labels carefully. You have been given the following additional information: Pyelonephritis, Female (Adult) Hypertension, To Be Confirmed Cephalexin Monohydrate Oral tablet Ibuprofen Oral tablet Hydrocodone Bitartrate, Acetaminophen Oral tablet (Electronically signed by Odin Vaughn Dr. 02/24/2016 8:01)
== END 2016-02-22 11:54 | disposition home or self-care (01) ==
LOC: ED SRH 08:43
DX: N10 Acute pyelonephritis (principal); I10 Essential (primary) hypertension; F17.200 Nicotine dependence, unspecified, uncomplicated
CPT/HCPCS: 90004; 90100; 90469; 91643; 92235; 95059

== ENCOUNTER 2016-08-20 18:08 | Emergency (ER) | payer OTHER ==
--- NOTE | 2016-08-20 23:32 | DIAGNOSTIC IMAGING REPORT ---
PROCEDURE: US ABDOMEN ULTRASOUND-COMPLETE INDICATION: Second trimester . TECHNIQUE: Jerome scale and color Doppler sonographic images of the abdomen were obtained. COMPARISON: None. FINDINGS: Gallbladder is contracted, but within normal limits. No evidence of gallstones. Common duct (3 mm) is normal. normal. Mild splenomegaly (16.0 cm). Liver, pancreas, kidneys (right 10.6 cm, left 12.2 cm), aorta, and inferior vena cava are normal. Second trimester in position. IMPRESSION: 1. Negative abdominal ultrasound.
--- NOTE | 2016-08-21 00:59 | ED NURSING NOTES ---
Clinical Report - Nurses [facility] [address] [place] [address] 08/20/2016 18:09 Patient: DALILA HINDS TRIAGE Triage time 18:25. Acuity: LEVEL 3. Chief Complaint: ABDOMINAL PAIN and NAUSEA and URINARY FREQUENCY and FLANK PAIN (Lt sided and mid abd pain /. Started 21 days ago.). Alert. No acute distress. SEPSIS SCREEN: Sepsis Screen: negative. Negative (no infection suspected/documented). ALO COMA SCORE: Alo Coma Scale: 15- eyes open spontaneously (4); best verbal response- oriented x 4 (5); best motor response- obeys commands (6). --18:33 Avril Callejas R.N. 18:25 08/20/16. BP: 149/80. HR: 98. RR: 18. O2 saturation: 98% on room air. Temp: 98.4 F. Pain level now: 05/15. --18:33 Avril Callejas R.N. 18:25 08/20/16. BP: 149/80. HR: 98. RR: 18. O2 saturation: 98% on room air. Temp: 98.4 F. Pain level now: 05/15. --18:33 Avril Callejas R.N. Weight: 108.8 kg stated. Height/Length: 71 inches Per Patient. BMI: 33.5. --18:31 Avril Callejas R.N. Medications Vit d 5000units day . --18:28 Avril Callejas R.N. Asa 81mg day. --18:28 Avril Callejas R.N. Prenatals day. --18:28 Avril Callejas R.N. Medication/allergy information source: the patient. --18:33 Avril Callejas R.N. Allergies No Known Drug Allergy. --18:28 Avril Callejas R.N. History Arrived by private vehicle. Historian: patient. Primary physician (asim). Onset. (2 days ago). She has had nausea and moderate, sharp, dull, aching, intermittent abdominal pain. The pain is described as located in the LUQ, central area of the abdomen and left side of the abdomen and radiating to the back and associated with nausea. No vomiting, diarrhea or constipation. Treatment GRADES 9 THROUGH 12 TEACHER: None. PAST MEDICAL HX: Immunizations: status is unknown. Confirmed . In 2nd trimester. Has had care by string studies director. G 4. P 2. Ab 1. SURGERY HX: No history of previous surgery. SOCIAL HX: Never smoker. No alcohol use or drug use. No recent travel. ABUSE ASSESSMENT: No report of abuse. FALL RISK ASSESSMENT: Fall risk assessment completed. No fall risk identified. NUTRITIONAL RISK ASSESSMENT: The nutritional risk assessment revealed no deficiencies. FUNCTIONAL ASSESSMENT: Functional assessment: no impairments noted. LEARNING NEEDS ASSESSMENT: The learning needs assessment revealed no barriers. SKIN INTEGRITY ASSESSMENT: Skin integrity risk assessment completed. No skin integrity risk identified. --18:33 Avril Callejas R.N. ( [facility] 159). --18:33 Avril Callejas R.N. PROBLEMS: Hypertension. Pyelonephritis. Contact Dermatitis. Sprain. Pelvic Pain. Neurological Disease. Vaginitis. UTI - Urinary Tract Infection. Multiple Sclerosis. Tetanus Status. Eye Pain. Optic Neuritis. --18:29 Avril Callejas R.N. ADDITIONAL SURGERIES: no known surgeries. Interventions ID band on patient. She was not taken to a room. --18:33 Avril Callejas R.N. PHYSICAL ASSESSMENT Ambulatory to room. Patient gowned. GENERAL / NEURO / PSYCH: Alert. Oriented X 4. Appears in pain and anxious. HEENT: Mucous membranes are pink. RESPIRATORY: Respirations not labored. CVS: Capillary refill less than 2 seconds. GI / : Abdominal tenderness in the upper abdomen, epigastric area, left upper quadrant and left side of the abdomen. SKIN: Skin is warm and dry. --18:34 Avril Callejas R.N. NURSING PROGRESS NOTES Patient gowned. Head of bed elevated. Two patient identifiers checked. Call light placed in reach. Side rails up x 2. Bed placed in lowest position. Brakes of bed on. Patient ready for evaluation. --18:34 Avril Callejas R.N. 20:00. Patient ID band checked for patient name: patient confirmed. Instructions provided to collect clean catch urine and patient verbalized understanding. Clean catch urine collected with return of yellow-colored clear urine; sample sent to lab for urinalysis and culture. Specimen labeled in the presence of the patient. --20:24 Avril Callejas R.N. 20:25 08/20/2016 Site #1 started via IV in the right wrist with an 20g angiocath, with aseptic technique and good blood return; one attempt. Blood drawn: rainbow set. Labeled in the presence of the patient and sent to the lab. Saline lock flushed with 10 mL saline. --20:25 Avril Callejas R.N. 20:26 08/20/2016 Started bag #1 1000 mL IV Fluids IV NS (Saline); at 1000 mL/hr over 1 hour(s) via site #1 via IV pump. Allergies verified and confirmed 5 rights. IV patency established. IV site checked: no pain, redness, or swelling. IV flushed thoroughly pre- and post-medication administration. --20:26 Avril Callejas R.N. 20:33 08/20/16. BP: 120/78. HR: 80. RR: 18. O2 saturation: 99%. Pain level now: 03/17. --20:33 Avril Callejas R.N. 21:48 08/20/2016 IV Fluids IV NS Discontinued: bag #1 completed. Total amount infused: 1000 mL. IV patency established. IV site checked: no pain, redness, or swelling. IV flushed thoroughly. --21:48 Ora Stock 21:52 08/20/2016 Acetaminophen (APAP) PO 1000 mg given. Allergies verified and confirmed 5 rights. --21:53 Avril Callejas R.N. 22:43 Ultrasound at bedside for exam. --22:44 McQuoid, Carolina, ER Tech1 Care transferred and report received (Avril RN). --22:57 Christina Sharma R.N. 23:21 08/20/16. ( Patient given extra pillow to place behind back for comfort, she states she is hungry but informed her to wait a little longer to be given ok to eat by physician, she states her understanding to this). --23:21 Christina Sharma R.N. 00:28 08/21/16. ( Patient up to the restroom). --00:28 Christina Sharma R.N. 00:38 08/21/16. ( Patient back from restroom, she is doing ok but anxious to find out what is going on. Assured patient she will be notified as soon as physician is able). --00:38 Christina Sharma R.N. DISPOSITION / DISCHARGE 01:08/21/2016 Site #1 removed upon discharge. Bandaid applied. --01:12 Christina Sharma R.N. 01:12 08/21/16. Departure time: :Aug 21 2016. Condition at departure: unchanged. No learning barriers present. Discharge instructions provided and reviewed with the patient. Reviewed medication(s) side effects, precautions, dosing and course information. Prescription(s) given to the patient. Activity restrictions (rest) reviewed. Patient verbalized understanding. Written instructions provided in Turkmen. The patient was discharged by the physician. She was discharged home and accompanied by chipper. She left the Emergency Department ambulatory and via private vehicle. Processing Supervisor driving. --01:12 Christina Sharma R.N. 01:09 08/21/16. BP: 124/65 (regular adult cuff) taken on the left arm, while sitting. HR: 71. RR: 18. O2 saturation: 95% on room air. Temp: 98 F (oral). Pain level now: 10. --01:12 Christina Sharma R.N. Locked/Released at 08/21/2016 1:46 by Christina Sharma R.N.
--- NOTE | 2016-08-21 00:59 | ED ORDER SUMMARY ---
..... Patient: DALILA HINDS OrderSheet [facility] VisitID: [id number] [place] [address] 35y, F Registration Date/Time: 08/20/2016 ORDER SHEET Weight: 108.8 kg (stated) Allergies: No Known Drug Allergy GENERAL ORDERS: UA-Culture if indicated Urgent (20:08/20/2016 Pauline R.N. verbal order read back to Ziggy Gonsalves) (Ack 20:31 OSrosalinda) (21:53 Pauline R.N.) CBC w Diff Urgent (20:08/20/2016 Pauline R.N. verbal order read back to Ziggy Gonsalves) (Ack 20:31 OSrosalinda) (21:22 AMcQuoid ER Tech1) CMP Urgent (20:26 08/20/2016 Pauline R.N. verbal order read back to Ziggy Gonsalves) (Ack 20:31 OSrosalinda) (21:22 AMcQuoid ER Tech1) US Abdomen Limited (Yes) (Left side) Urgent (21:31 08/20/2016 Ziggy Gonsalves) (Ack 21:33 AMcQuoid ER Tech1) (22:57 Diego Tripathi.N.) US Abdomen Complete (No) Urgent (23:11 08/20/2016 AMcQuoid ER Tech1 verbal order read back to Ziggy Gonsalves) (23:12 AMcQuoid ER Tech1) MEDICATION ORDERS: Acetaminophen PO 1,000 mg (NOW) (21:35 08/20/2016 Ziggy Gonsalves) (Ack 21:49 Pauline R.N.) IV FLUIDS: IV NS with Normal Saline 1 Liter: initial bolus none -, then 1000 mL/hr for X1 (NOW) (20:25 08/20/2016 Pauline Olvera. verbal order read back to Ziggy Gonsalves) (20:26 Pauline R.N.) IV Saline Lock (20:26 08/20/2016 Pauline Martinez verbal order read back to Ziggy Gonsalves) (20:26 Pauline R.N.) ORDER SHEET NOTES: [Electronically signed by Christina Sharma R.N. (01:46 08/21/2016)] [Electronically signed by Asad Sam MD (22:46 08/23/2016)] [Electronically locked/signed by Christina Sharma R.N. (:46 08/21/2016)]
--- NOTE | 2016-08-21 00:59 | ED CLINICAL REPORT ---
Clinical Report - Physicians/Mid Levels [facility] [address] [place] [address] 08/20/2016 18:09 Patient: DALILA HINDS Time Seen: 18:17; initial patient contact. Arrived- By private vehicle. Historian- patient. HISTORY OF PRESENT ILLNESS Chief Complaint: ABDOMINAL PAIN and FLANK PAIN. At its maximum, severity described as moderate. When seen in the E.D., severity described as moderate. Modifying factors. Not worsened by anything. Not relieved by anything. It is described as sharp, stabbing and cramping and it is described as located in the left abdomen and the left flank. This started about 2 days ago and is still present (persistent). It was gradual in onset and has been waxing/waning. The patient has had nausea. No loss of appetite, vomiting or diarrhea. Similar symptoms previously: None. Recent medical care: Not recently seen/assessed. REVIEW OF SYSTEMS No constipation, difficulty with urination, pain with urination, urinary frequency or fever. No chills. Currently . All systems otherwise negative, except as recorded above. PAST HISTORY Hypertension. Pyelonephritis. Contact Dermatitis. Sprain. Pelvic Pain. Neurological Disease. Vaginitis. UTI - Urinary Tract Infection. Multiple Sclerosis. Tetanus Status. Eye Pain. Optic Neuritis. Additional Surgeries: no known surgeries. Medications: Prenatals day. Asa 81mg day. Vit d 5000units day . Allergies: No Known Drug Allergy. SOCIAL HISTORY Never smoker. No alcohol use or drug use. ADDITIONAL NOTES The nursing notes have been reviewed. PHYSICAL EXAM Vital Signs: 08/20/2016 18:25 BP: 149/80. HR: 98. RR: 18. O2 saturation: 98%. Temp: 98.4 F. Pain level now: 10. Have been reviewed. Hypertensive. Heart rate normal. Respiratory rate normal. Temperature normal. Oxygen saturation normal. Appearance: Alert. Oriented X3. No acute distress. Eyes: Eyes normal inspection. ENT: Pharynx normal. CVS: Normal heart rate and rhythm. Heart sounds normal. Respiratory: No respiratory distress. Breath sounds normal. Abdomen: Soft. Moderate tenderness in the left side of the abdomen and left lower quadrant with guarding present. No rebound tenderness. Bowel sounds normal. No organomegaly. No mass. Back: Normal inspection. Moderate CVA tenderness on the left. Skin: Normal skin color. Extremities: No lower extremity edema. Neuro: Oriented X 3. LABS, X-RAYS, AND EKG Abdominal Sonogram: Mild enlargement of spleen is present. The study was independently viewed by me. Laboratory Tests: UA-Culture if indicated: (UTE: 08/20/2016 20:30) ( [facility] 08/20/2016 21:02) Final results Test Result Flag Units (Reference) URINE COLOR YELLOW URINE APPEARANCE SL CLOUDY URINE GLUCOSE TRACE (NEGATIVE) URINE BILIRUBIN NEGATIVE (NEGATIVE) URINE KETONE NEGATIVE (NEGATIVE) URINE SPECIFIC GRAVITY >= 1.030 (1.010-1.030) URINE PH 5.5 (5.0-8.0) URINE PROTEIN NEGATIVE (NEGATIVE) URINE UROBILINOGEN 0.2 EU/dL (0.2-1.0) URINE NITRITE NEGATIVE (NEGATIVE) URINE BLOOD NEGATIVE (NEGATIVE) URINE LEUK ESTERASE NEGATIVE (NEGATIVE) URINE RBC NONE SEEN rbc/hpf (0-1) URINE WBC 3-5 wbc/hpf (0-1) URINE EPITHELIAL CELLS 3-5 EPI/hpf (0-5) URINE BACTERIA NONE SEEN (NONE SEEN) URINE COMMENT CULT NOT INDICATED 2+ MUCUSMODERATE CALCIUM OXALATE CRYSTALSURINE CULTURES ARE SET-UP BASED ON THE FOLLOWING CRITERIA:POSITIVE NITRITEPOSITIVE LEUKOCYTE ESTERASEGREATER THAN 10 WHITE BLOOD CELLSMODERATE (2+) OR GREATER BACTERIA CBC w Diff: (UTE: 08/20/2016 20:30) ( [facility] 08/20/2016 20:49) Final results Test Result Flag Units (Reference) WHITE BLOOD COUNT 10.9 K/uL (4.5-11.5) RED BLOOD COUNT 4.06 M/uL (4.00-5.20) HEMOGLOBIN 12.9 gm/dL (12.0-16.0) HEMATOCRIT 37.1 % (36.0-46.0) MEAN CELL VOLUME 91 fL (80-100) MEAN CORPUSCULAR HGB 32 pg (26-34) MEAN CORPUSCULAR HGB CONC 35 g/dL (31-37) RED CELL DISTRIBUTION WIDTH 13.1 % (11.6-14.8) PLATELET COUNT 171 K/uL (150-400) NEUTROPHIL % 82.0 H % (50-75) LYMPH % 12.4 L % (25-40) MONO % 4.7 % (3-14) EOSINOPHIL % 0.7 % (0-4) BASOPHIL % 0.2 % (0-2) CMP: (UTE: 08/20/2016 20:30) ( MsgRcvd 08/20/2016 21:04) Final results Test Result Flag Units (Reference) GLUCOSE 118 H mg/dL (70-110) BUN 8 mg/dL (7-18) CREATININE 0.7 mg/dL (0.6-1.3) Estimated GFR >60 mL/min Estimated GFR- >60 mL/min Note: Persistent reduction over 3 months in eGFR<60 mL/min/1.73 m2 defines CKD. Patients with eGFR values>=60 mL/min/1.73 m2 may also have CKD if evidence ofpersistent proteinuria. Additional information may be foundat www.kidney.org. SODIUM 139 mmol/L (136-145) POTASSIUM 3.4 L mmol/L (3.5-5.1) CHLORIDE 106 mmol/L (98-107) CARBON DIOXIDE 24 mmol/L (21-32) CALCIUM 8.3 L mg/dL (8.5-10.1) TOTAL PROTEIN 6.2 L g/dL (6.4-8.2) ALBUMIN 2.9 L g/dL (3.3-5.0) BILIRUBIN, TOTAL 0.2 mg/dL (0.0-1.0) ALKALINE PHOSPHATASE 59 U/L (46-116) AST (SGOT) 11 L U/L (15-37) ALT (SGPT) 16 U/L (12-78) . PROGRESS AND PROCEDURES Course of Care: 21:42 08/20/16. Case D/W Dr. Nogueira. Concerns for renal stone. U/S en route. Dr. Corcoran and I reviewed the patient's history and physical examination findings and results of her labs. He has requested that I follow-up on the results of her ultrasound. I subsequently reviewed the patient's history with her and examined her and my findings were consistent with those noted by him. I followed up on the results of the sonogram and the results are as noted. Patient/family counseled. Old medical records ordered. Disposition: Discharged. Condition: stable. CLINICAL IMPRESSION Acute epigastric abdominal pain of unknown cause. Nausea. INSTRUCTIONS Drink plenty of fluids. Avoid alcohol. Avoid salty and spicy foods. Warnings: Further evaluation is necessary. GENERAL WARNINGS: Return or contact your physician immediately if your condition worsens or changes unexpectedly, if not improving as expected, or if other problems arise. Your Current Medications: CONTINUE TAKING THE FOLLOWING MEDICATIONS: Asa 81mg day*. Prenatals day*. Vit d 5000units day *. Prescription Medications: Zofran 4 mg: Take 1 orally every six hours as needed for nausea/vomiting. Dispense ten (10). No refills. Substitution is permissible. Follow-up: Follow up with your doctor tomorrow. Call for an appointment. Understanding of the discharge instructions verbalized by patient. (Electronically signed by Asad Sam MD 08/23/2016 22:46)
--- NOTE | 2016-08-21 00:59 | ED ORDER SUMMARY ---
..... Patient: DALILA HINDS OrderSheet [facility] VisitID: [id number] [place] [address] 35y, F Registration Date/Time: 08/20/2016 ORDER SHEET Weight: 108.8 kg (stated) Allergies: No Known Drug Allergy GENERAL ORDERS: UA-Culture if indicated Urgent (20:08/20/2016 Pauline R.N. verbal order read back to Ziggy Gonsalves) (Ack 20:31 OSrosalinda) (21:53 Pauline R.N.) CBC w Diff Urgent (20:08/20/2016 Pauline R.N. verbal order read back to Ziggy Gonsalves) (Ack 20:31 OSrosalinda) (21:22 AMcQuoid ER Tech1) CMP Urgent (20:26 08/20/2016 Pauline R.N. verbal order read back to Ziggy Gonsalves) (Ack 20:31 OSrosalinda) (21:22 AMcQuoid ER Tech1) US Abdomen Limited (Yes) (Left side) Urgent (21:31 08/20/2016 Ziggy Gonsalves) (Ack 21:33 AMcQuoid ER Tech1) (22:57 Diego Tripathi.N.) US Abdomen Complete (No) Urgent (23:11 08/20/2016 AMcQuoid ER Tech1 verbal order read back to Ziggy Gonsalves) (23:12 AMcQuoid ER Tech1) MEDICATION ORDERS: Acetaminophen PO 1,000 mg (NOW) (21:35 08/20/2016 Ziggy Gonsalves) (Ack 21:49 Pauline R.N.) IV FLUIDS: IV NS with Normal Saline 1 Liter: initial bolus none -, then 1000 mL/hr for X1 (NOW) (20:25 08/20/2016 Pauline Olvera. verbal order read back to Ziggy Gonsalves) (20:26 Pauline R.N.) IV Saline Lock (20:26 08/20/2016 Pauline Martinez verbal order read back to Ziggy Gonsalves) (20:26 Pauline R.N.) ORDER SHEET NOTES: [Electronically signed by Christina Sharma R.N. (01:46 08/21/2016)] [Electronically signed by Asad Sam MD (22:46 08/23/2016)] [Electronically locked/signed by Christina Sharma R.N. (:46 08/21/2016)]
--- NOTE | 2016-08-21 00:59 | ED NURSING NOTES ---
Clinical Report - Nurses [facility] [address] [place] [address] 08/20/2016 18:09 Patient: DALILA HINDS TRIAGE Triage time 18:25. Acuity: LEVEL 3. Chief Complaint: ABDOMINAL PAIN and NAUSEA and URINARY FREQUENCY and FLANK PAIN (Lt sided and mid abd pain /. Started 21 days ago.). Alert. No acute distress. SEPSIS SCREEN: Sepsis Screen: negative. Negative (no infection suspected/documented). ALO COMA SCORE: Alo Coma Scale: 15- eyes open spontaneously (4); best verbal response- oriented x 4 (5); best motor response- obeys commands (6). --18:33 Avril Callejas R.N. 18:25 08/20/16. BP: 149/80. HR: 98. RR: 18. O2 saturation: 98% on room air. Temp: 98.4 F. Pain level now: 05/15. --18:33 Avril Callejas R.N. 18:25 08/20/16. BP: 149/80. HR: 98. RR: 18. O2 saturation: 98% on room air. Temp: 98.4 F. Pain level now: 05/15. --18:33 Avril Callejas R.N. Weight: 108.8 kg stated. Height/Length: 71 inches Per Patient. BMI: 33.5. --18:31 Avril Callejas R.N. Medications Vit d 5000units day . --18:28 Avril Callejas R.N. Asa 81mg day. --18:28 Avril Callejas R.N. Prenatals day. --18:28 Avril Callejas R.N. Medication/allergy information source: the patient. --18:33 Avril Callejas R.N. Allergies No Known Drug Allergy. --18:28 Avril Callejas R.N. History Arrived by private vehicle. Historian: patient. Primary physician (asim). Onset. (2 days ago). She has had nausea and moderate, sharp, dull, aching, intermittent abdominal pain. The pain is described as located in the LUQ, central area of the abdomen and left side of the abdomen and radiating to the back and associated with nausea. No vomiting, diarrhea or constipation. Treatment ENVIRONMENTAL SERVICES TECH: None. PAST MEDICAL HX: Immunizations: status is unknown. Confirmed . In 2nd trimester. 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 G 4. P 2. Ab 1. SURGERY HX: No history of previous surgery. SOCIAL HX: Never smoker. No alcohol use or drug use. No recent travel. ABUSE ASSESSMENT: No report of abuse. FALL RISK ASSESSMENT: Fall risk assessment completed. No fall risk identified. NUTRITIONAL RISK ASSESSMENT: The nutritional risk assessment revealed no deficiencies. FUNCTIONAL ASSESSMENT: Functional assessment: no impairments noted. LEARNING NEEDS ASSESSMENT: The learning needs assessment revealed no barriers. SKIN INTEGRITY ASSESSMENT: Skin integrity risk assessment completed. No skin integrity risk identified. --18:33 Avril Callejas R.N. ( [facility] 159). --18:33 Avril Callejas R.N. PROBLEMS: Hypertension. Pyelonephritis. Contact Dermatitis. Sprain. Pelvic Pain. Neurological Disease. Vaginitis. UTI - Urinary Tract Infection. Multiple Sclerosis. Tetanus Status. Eye Pain. Optic Neuritis. --18:29 Avril Callejas R.N. ADDITIONAL SURGERIES: no known surgeries. Interventions ID band on patient. She was not taken to a room. --18:33 Avril Callejas R.N. PHYSICAL ASSESSMENT Ambulatory to room. Patient gowned. GENERAL / NEURO / PSYCH: Alert. Oriented X 4. Appears in pain and anxious. HEENT: Mucous membranes are pink. RESPIRATORY: Respirations not labored. CVS: Capillary refill less than 2 seconds. GI / : Abdominal tenderness in the upper abdomen, epigastric area, left upper quadrant and left side of the abdomen. SKIN: Skin is warm and dry. --18:34 Avril Callejas R.N. NURSING PROGRESS NOTES Patient gowned. Head of bed elevated. Two patient identifiers checked. Call light placed in reach. Side rails up x 2. Bed placed in lowest position. Brakes of bed on. Patient ready for evaluation. --18:34 Avril Callejas R.N. 20:00. Patient ID band checked for patient name: patient confirmed. Instructions provided to collect clean catch urine and patient verbalized understanding. Clean catch urine collected with return of yellow-colored clear urine; sample sent to lab for urinalysis and culture. Specimen labeled in the presence of the patient. --20:24 Avril Callejas R.N. 20:25 08/20/2016 Site #1 started via IV in the right wrist with an 20g angiocath, with aseptic technique and good blood return; one attempt. Blood drawn: rainbow set. Labeled in the presence of the patient and sent to the lab. Saline lock flushed with 10 mL saline. --20:25 Avril Callejas R.N. 20:26 08/20/2016 Started bag #1 1000 mL IV Fluids IV NS (Saline); at 1000 mL/hr over 1 hour(s) via site #1 via IV pump. Allergies verified and confirmed 5 rights. IV patency established. IV site checked: no pain, redness, or swelling. IV flushed thoroughly pre- and post-medication administration. --20:26 Avril Callejas R.N. 20:33 08/20/16. BP: 120/78. HR: 80. RR: 18. O2 saturation: 99%. Pain level now: 03/17. --20:33 Avril Callejas R.N. 21:48 08/20/2016 IV Fluids IV NS Discontinued: bag #1 completed. Total amount infused: 1000 mL. IV patency established. IV site checked: no pain, redness, or swelling. IV flushed thoroughly. --21:48 Ora Stock 21:52 08/20/2016 Acetaminophen (APAP) PO 1000 mg given. Allergies verified and confirmed 5 rights. --21:53 Avril Callejas R.N. 22:43 Ultrasound at bedside for exam. --22:44 McQuoid, Carolina, ER Tech1 Care transferred and report received (Avril RN). --22:57 Christina Sharma R.N. 23:21 08/20/16. ( Patient given extra pillow to place behind back for comfort, she states she is hungry but informed her to wait a little longer to be given ok to eat by physician, she states her understanding to this). --23:21 Christina Sharma R.N. 00:28 08/21/16. ( Patient up to the restroom). --00:28 Christina Sharma R.N. 00:38 08/21/16. ( Patient back from restroom, she is doing ok but anxious to find out what is going on. Assured patient she will be notified as soon as physician is able). --00:38 Christina Sharma R.N. DISPOSITION / DISCHARGE 01:08/21/2016 Site #1 removed upon discharge. Bandaid applied. --01:12 Christina Sharma R.N. 01:12 08/21/16. Departure time: :Aug 21 2016. Condition at departure: unchanged. No learning barriers present. Discharge instructions provided and reviewed with the patient. Reviewed medication(s) side effects, precautions, dosing and course information. Prescription(s) given to the patient. Activity restrictions (rest) reviewed. Patient verbalized understanding. Written instructions provided in Spanish. The patient was discharged by the physician. She was discharged home and accompanied by psychiatric specialist. She left the Emergency Department ambulatory and via private vehicle. [employer] driving. --01:12 Christina Sharma R.N. 01:09 08/21/16. BP: 124/65 (regular adult cuff) taken on the left arm, while sitting. HR: 71. RR: 18. O2 saturation: 95% on room air. Temp: 98 F (oral). Pain level now: 10. --01:12 Christina Sharma R.N. Locked/Released at 08/21/2016 1:46 by Christina Sharma R.N.
--- NOTE | 2016-08-23 22:46 | ED DISCHARGE INSTRUCTIONS ---
Patient: DALILA HINDS General Instructions [facility] VisitID: [id number] [place] [address] 35y, F Registration Date/Time: 08/20/2016 Acute epigastric abdominal pain of unknown cause. Nausea. INSTRUCTIONS Drink plenty of fluids. Avoid alcohol. Avoid salty and spicy foods. Warnings: Further evaluation is necessary. GENERAL WARNINGS: Return or contact your physician immediately if your condition worsens or changes unexpectedly, if not improving as expected, or if other problems arise. Your Current Medications: CONTINUE TAKING THE FOLLOWING MEDICATIONS: Asa 81mg day*. Prenatals day*. Vit d 5000units day *. Prescription Medications: Zofran 4 mg: Take 1 orally every six hours as needed for nausea/vomiting. Dispense ten (10). No refills. Substitution is permissible. Follow-up: Follow up with your doctor tomorrow. Call for an appointment. Understanding of the discharge instructions verbalized by patient. ADDITIONAL INFORMATION Abdominal Pain, Unknown Cause (Female) The exact cause of your abdominal (stomach) pain is not certain. This does not mean that this is something to worry about, or the right tests were not done. Everyone likes to know the exact cause of the problem, but sometimes with abdominal pain, there is no clear-cut cause, and this could be a good thing. The good news is that your symptoms can be treated, and you will feel better. Your condition does not seem serious now; however, sometimes the signs of a serious problem may take more time to appear. For this reason,it is important for you to watch for any new symptoms, problems,or worsening of your condition. Over the next few days, the abdominal pain may come and go, or be continuous. Other common symptoms can include nausea and vomiting. Sometimes it can be difficult to tell if you feel nauseous, you may just feel bad and not associate that feeling with nausea. Constipation, diarrhea, and a fever may go along with the pain. The pain may continue even if treated correctly over the following days. Depending on how things go, sometimes the cause can become clear and may require further or different treatment. Additional evaluations, medications, or tests may be needed. Home care Your health care provider may prescribe medications for pain, symptoms, or an infection. Follow the health care provider's instructions for taking these medications. General care Rest until your next exam. No strenuous activities. Try to find positions that ease discomfort. A small pillow placed on the abdomen may help relieve pain. Something warm on your abdomen (such as a heating pad) may help, but be careful not to burn yourself. Diet Do not force yourself to eat, especially if having cramps, vomiting, or diarrhea. Water is important so you do not get dehydrated. Soup may also be good. Sports drinks may also help, especially if they are not too acidic. Make sure you don't drink sugary drinks as this can make things worse. Take liquids in small amounts. Do not guzzle them. Caffeine sometimes makes the pain and cramping worse. Avoid dairy products if you have vomiting or diarrhea. Don't eat large amounts at a time. Wait a few minutes between bites. Eat a diet low in fiber (called a low-residue diet). Foods allowed include refined breads, white rice, fruit and vegetable juices without pulp, tender meats. These foods will pass more easily through the intestine. Avoid whole-grain foods, whole fruits and vegetables, meats, seeds and nuts, fried or fatty foods, dairy, alcohol and spicy foods until your symptoms go away. Follow-up care Follow up with your health care provider as instructed, or if your pain does not begin to improve in the next 24 hours. When to seek medical care Seek prompt medical care if any of the following occur: Pain gets worse or moves to the right lower abdomen New or worsening vomiting or diarrhea Swelling of the abdomen Unable to pass stool for more than three days Fever of 100.4F (38C) or higher, or as directed by your healthcare provider. Blood in vomit or bowel movements (dark red or black color) Jaundice (yellow color of eyes and skin) Weakness, dizziness Chest, arm, back, neck or jaw pain Unexpected vaginal bleeding or missed period Call 911 Call emergency services if any of the following occur: Trouble breathing Confusion Fainting or loss of consciousness Rapid heart rate Seizure [place] Diet A bland diet is used for patients with an upset stomach. It consists of foods that are mild and easy to digest. It is better to eat small frequent meals rather than three large meals a day. BEVERAGES OK: Fruit juices, non-caffeinated teas and coffee, non-carbonated escoto AVOID: Carbonated beverage, caffeinated tea and coffee, all alcoholic beverages BREAD OK: Refined white, wheat or rye bread, kianna or soda crackers, Boon toast, plain rolls, bagels AVOID: Whole-grain bread CEREAL OK: Refined cereals: cooked or ready to eat AVOID: Whole grain cereals and granola, or those containing bran, seeds or nuts DESSERTS OK: Peanut butter and all others except those to "avoid" AVOID: Chocolate, cocoa, coconut, popcorn, nuts, seeds, jam, marmalade FRUITS OK: Canned, cooked, frozen or fresh fruits without seeds or tough skin AVOID: Olives, skin and seeds of fruit MEATS OK: All fresh or preserved meat, fish and fowl AVOID: Any that are prepared with those spices to "avoid" CHEESE & EGGS OK: Eggs, cottage cheese, cream cheese, other cheeses AVOID: All cheeses made with those spices to "avoid" POTATOES & PASTA OK: Potato, rice, macaroni, noodles, spaghetti AVOID: None SOUPS OK: All soups without heavy seasoning AVOID: Soups made with those spices to "avoid" VEGETABLES OK: Canned, cooked, fresh or frozen mildly flavored vegetables without seeds, skins or coarse fiber AVOID: Vegetables prepared with those spices to "avoid"; skin and seeds of vegetables and those with coarse fiber SPICES OK: Salt, lemon and [place] juice, vinegar, all extracts, brent, cinnamon, thyme, mace, allspice, paprika AVOID: Anthony powder, cloves, pepper, seed spices, garlic, gravy pickles, highly seasoned salad dressings Ondansetron Oral disintegrating tablet What is this medicine? ONDANSETRON (on GEORGINA se ana cristina) is used to treat nausea and vomiting caused by chemotherapy. It is also used to prevent or treat nausea and vomiting after surgery. How should I use this medicine? These tablets are made to dissolve in the mouth. Do not try to push the tablet through the foil backing. With dry hands, peel away the foil backing and gently remove the tablet. Place the tablet in the mouth and allow it to dissolve, then swallow. While you may take these tablets with water, it is not necessary to do so. Talk to your installment agent regarding the use of this medicine in children. Special care may be needed. What side effects may I notice from receiving this medicine? Side effects that you should report to your doctor or health healthcare network pricing consultant as soon as possible: allergic reactions like skin rash, itching or hives, swelling of the face, lips, or tongue breathing problems dizziness fast or irregular heartbeat feeling faint or lightheaded, falls fever and chills swelling of the hands and feet tightness in the chest Side effects that usually do not require medical attention (report to your doctor or health healthcare network pricing consultant if they continue or are bothersome): constipation or diarrhea headache What may interact with this medicine? Do not take this medicine with any of the following medications: -apomorphine -cisapride -dofetilide -dronedarone -pimozide -thioridazine -ziprasidone This medicine may also interact with the following medications: -carbamazepine -phenytoin -rifampicin -tramadol -other medicines that prolong the QT interval (cause an abnormal heart rhythm) What if I miss a dose? If you miss a dose, take it as soon as you can. If it is almost time for your next dose, take only that dose. Do not take double or extra doses. Where should I keep my medicine? Keep out of the reach of children. Store between 2 and 30 degrees C (36 and 86 degrees F). Throw away any unused medicine after the expiration date. What should I tell my health care provider before I take this medicine? They need to know if you have any of these conditions: heart disease history of irregular heartbeat liver disease low levels of magnesium or potassium in the blood an unusual or allergic reaction to ondansetron, granisetron, other medicines, foods, dyes, or preservatives or trying to get breast-feeding What should I watch for while using this medicine? Check with your doctor or health healthcare network pricing consultant as soon as you can if you have any sign of an allergic reaction. You have been given the following additional information: Abdominal Pain, Unknown Cause, (Female) Diet, [place] (Adult) Ondansetron Oral disintegrating tablet (Electronically signed by Asad Sam MD 08/23/2016 22:46)
--- NOTE | 2016-08-23 22:46 | ED MED RECONCILIATION SUMMARY ---
Patient: DALILA HINDS Medication Reconciliation Report [facility] VisitID: [id number] [address] [place] [address] 35y, F Registration Date/Time: 08/20/2016 Weight: 108.8 kg Height/Length: 71 in. BMI: 33.5 ALLERGIES: No Known Drug Allergy The patient's Home Medications are listed below: CONTINUE TAKING THE FOLLOWING MEDICATIONS: Asa 81mg day Prenatals day Vit d 5000units day The source(s) of the original Home Medication information: patient The following Medications were given to the patient in the Emergency Department: IV NS IV Fluids bolus 0, then 1000 mL/hr, administered: 08/20/2016 8:26:00 PM Acetaminophen [PO] PO 1000 mg, administered: 08/20/2016 9:52:00 PM The following Medications were prescribed to the patient: Zofran 4 mg: Take 1 orally every six hours as needed for nausea/vomiting. Dispense ten (10). No refills. Substitution is permissible. -- Asad Sam MD
--- NOTE | 2016-08-23 22:46 | ED MAR SUMMARY ---
..... Medication Administration Record [facility] [address] [place] [address] Patient: DALILA HINDS Visit ID: [id number] 35y, F Weight: 108.8 kg Height/Length: 71 in BMI: 33.5 ALLERGIES: No Known Drug Allergy Start 20:26 08/20/2016 Avril Callejas R.N., Stop 21:48 08/20/2016 Ora Stock, Medication Administered: IV NS (SALINE), Dose: IV Fluids over 1 hour(s), Rate: 1000 mL/hr, Dispensed: 1000 mL bag, Site: #1 right wrist. Medication Ordered: IV NS with Normal Saline 1 Liter: initial bolus none -, then 1000 mL/hr for X1 (NOW). Given 21:52 08/20/2016 Avril Callejas R.N. Medication Administered: ACETAMINOPHEN [PO] (APAP), Dose: 1000 mg PO. Medication Ordered: Acetaminophen PO 1,000 mg (NOW).
--- NOTE | 2016-08-23 22:46 | ED MED RECONCILIATION SUMMARY ---
Patient: DALILA HINDS Medication Reconciliation Report [facility] VisitID: [id number] [address] [place] [address] 35y, F Registration Date/Time: 08/20/2016 Weight: 108.8 kg Height/Length: 71 in. BMI: 33.5 ALLERGIES: No Known Drug Allergy The patient's Home Medications are listed below: CONTINUE TAKING THE FOLLOWING MEDICATIONS: Asa 81mg day Prenatals day Vit d 5000units day The source(s) of the original Home Medication information: patient The following Medications were given to the patient in the Emergency Department: IV NS IV Fluids bolus 0, then 1000 mL/hr, administered: 08/20/2016 8:26:00 PM Acetaminophen [PO] PO 1000 mg, administered: 08/20/2016 9:52:00 PM The following Medications were prescribed to the patient: Zofran 4 mg: Take 1 orally every six hours as needed for nausea/vomiting. Dispense ten (10). No refills. Substitution is permissible. -- Asad Sam MD
--- NOTE | 2016-08-23 22:46 | ED MAR SUMMARY ---
..... Medication Administration Record [facility] [address] [place] [address] Patient: DALILA HINDS Visit ID: [id number] 35y, F Weight: 108.8 kg Height/Length: 71 in BMI: 33.5 ALLERGIES: No Known Drug Allergy Start 20:26 08/20/2016 Avril Callejas R.N., Stop 21:48 08/20/2016 Ora Stock, Medication Administered: IV NS (SALINE), Dose: IV Fluids over 1 hour(s), Rate: 1000 mL/hr, Dispensed: 1000 mL bag, Site: #1 right wrist. Medication Ordered: IV NS with Normal Saline 1 Liter: initial bolus none -, then 1000 mL/hr for X1 (NOW). Given 21:52 08/20/2016 Avril Callejas R.N. Medication Administered: ACETAMINOPHEN [PO] (APAP), Dose: 1000 mg PO. Medication Ordered: Acetaminophen PO 1,000 mg (NOW).
== END 2016-08-21 01:10 | disposition home or self-care (01) ==
LOC: ED SRH 18:08
DX: R10.13 Epigastric pain (principal); R11.0 Nausea; I10 Essential (primary) hypertension; Z79.82 Long term (current) use of aspirin; G35 Multiple sclerosis
CPT/HCPCS: 90004; 90100; 95059